=== PATIENT | female | born 1945 | race Caucasian/White ===

== ENCOUNTER 2016-10-21 08:22 | Emergency (ER) | payer MEDICARE, OTHER ==
--- NOTE | 2016-10-21 08:31 | ED Physician Documentation ---
PD HPI BACK INJURY - Stated complaint Stated Complaint: BODY PX - History obtained from History obtained from: Patient - History of Present Illness Location: Right, Lower Type of injury: Twist (turning to put towel back on rack, no fall nor heavy lifting.) Where injury occurred: Other (motel) Timing - onset: How many days ago (3) Timing - duration: Days (3) Timing - details: Abrupt onset, Still present Quality: Pain, Aching Improved by: No: Rest Worsened by: Moving, Palpating Associated symptoms: Numbness (some numbness anterior thigh). No: Fever, Weakness Contributing factors: No: Anticoagulated, Prior back surgery, Work related Similar symptoms before: Has not had sx before Recently seen: Not recently seen Review of Systems Constitutional: denies: Fever, Chills Nose: denies: Rhinorrhea / runny nose, Congestion Throat: denies: Sore throat Cardiac: denies: Chest pain / pressure Respiratory: denies: Cough GI: denies: Abdominal Pain, Nausea, Vomiting, Diarrhea : denies: Dysuria, Frequency, Incontinent, Discharge Skin: denies: Rash, Lesions Musculoskeletal: reports: Back pain Neurologic: reports: Numbness (anterior right thigh). denies: Focal weakness PD PAST MEDICAL HISTORY - Past Medical History Cardiovascular: Hypertension, [place] Respiratory: None Endocrine/Autoimmune: HyPOthyroidism GI: Other : None HEENT: None Psych: None Musculoskeletal: Other Derm: None - Past Surgical History General: Cholecystectomy Ortho: Carpal Tunnel surgery, Other Cardiovascular: Angioplasty HEENT: Other - Present Medications Home Medications: Ambulatory Orders Medication Instructions Recorded Confirmed Levothyroxine Sodium 200 mcg PO DAILY 02/08/16 10/21/16 amLODIPine [Norvasc] 5 mg PO BID 02/08/16 10/21/16 Methocarbamol [Robaxin] 500 mg PO Q6H PRN #25 tablet 10/21/16 Naproxen [Naprosyn] 500 mg PO BID #20 tablet 10/21/16 Omeprazole 20 mg PO DAILY 10/21/16 10/21/16 Tramadol HCl 50 mg PO Q6H PRN #30 tablet 10/21/16 - Allergies Allergies/Adverse Reactions: Allergies Allergy/AdvReac Type Severity Reaction Status Date / Time acetaminophen [From Percocet] Allergy Unknown Verified 10/21/16 08:30 clindamycin Allergy Unknown Verified 10/21/16 08:30 codeine Allergy Hallucinati Verified 02/08/16 14:44 ons oxycodone HCl * Allergy Unknown Verified 10/21/16 08:30 [From Percocet] penicillin G Allergy Rash Verified 02/08/16 14:44 Niylyjg-Ndy-Wqr Reductase Allergy Rash Verified 02/08/16 14:44 Inhibitor venom-wasp [wasp venom] Allergy Anaphylaxis Verified 02/08/16 14:44 PD ED PE NORMAL - Vitals Vital signs reviewed: Yes - General General: Alert and oriented X 3, Well developed/nourished, Other (appears in [place]) - Cardiac Cardiac: RRR, No murmur - Respiratory Respiratory: Clear bilaterally - Abdomen Abdomen: Soft, Non tender - Back Back: No CVA TTP, No spinal TTP, Other (tender focally right upper SI area. Trigger point injection at that spot using Marcaine 2 ml with 1 ml Kenalog 40 mg. This did seem to help after xray. ) - Derm Derm: Normal color, Warm and dry, No rash - Extremities Extremities: No edema, No calf tenderness / cord - Neuro Neuro: Alert and oriented X 3, No motor deficit, Normal speech. No: No sensory deficit (less sensation to touch and pressure just at anterior right thigh. ) Results - Vitals Vitals: Vital Signs - 24 hr 10/21/16 10/21/16 08:26 09:46 Temperature 36.7 C Heart Rate 101 H 84 Respiratory 18 16 Rate Blood Pressure 177/76 H 180/67 H O2 Saturation 98 97 Oxygen O2 Source Room air - Rads (name of study) lumbar spine Radiology: Prelim report reviewed (mild arthritis, no acute findings. ) Departure - Departure Disposition: 01 Home, Self Care Clinical Impression: Low back strain Qualifiers: Encounter type: initial encounter Qualified Code(s): S39.012A - Strain of muscle, fascia and tendon of lower back, initial encounter Sciatica Qualifiers: Laterality: right Qualified Code(s): M54.31 - Sciatica, right side Condition: Stable Record reviewed to determine appropriate education?: Yes Instructions: ED Sciatica, ED Sprain Strain Lumbar Follow-Up: Corky Bojorquez MD [Primary Care Provider] - Prescriptions: Naproxen [Naprosyn] 500 mg PO BID #20 tablet Methocarbamol [Robaxin] 500 mg PO Q6H PRN #25 tablet PRN Reason: Spasms Tramadol HCl 50 mg PO Q6H PRN #30 tablet PRN Reason: Pain Comments: Heat and gentle stretching for the low back. Naproxen or Ibuprofen 2-3 times daily. Robaxin as directed for stiffness/spasms, and add Tylenol and/or Tramadol for pains. Recheck if not improved over the next few days. Discharge Date/Time: 10/21/16 09:56
[2016-10-21] MEDS ORDERED: TRIAMCINOLONE 40 MG/ML VIAL ONE (08:52)
[2016-10-21] MEDS ORDERED: BUPIVACAINE 0.5% PF 30 ML VIAL ONE (08:52)
[2016-10-21] MEDS ORDERED: ACETAMINOPHEN 325 MG TABLET PO ONE (08:53)
[2016-10-21] MEDS ORDERED: METHOCARBAMOL 500 MG TABLET PO ONE (08:53)
[2016-10-21] MEDS ORDERED: traMADol 50 MG TABLET PO ONE (08:53)
[2016-10-21] MEDS: METHOCARBAMOL 500 MG TABLET PO STA (08:55)
[2016-10-21] MEDS: traMADol 50 MG TABLET PO STA (08:55)
[2016-10-21] MEDS: ACETAMINOPHEN 325 MG TABLET PO STA (08:55)
[2016-10-21] MEDS: BUPIVACAINE 0.5% PF 30 ML VIAL SUBQ STA (09:04)
[2016-10-21] MEDS: TRIAMCINOLONE 40 MG/ML VIAL IM STA (09:05)
--- NOTE | 2016-10-21 09:30 | XRAY Preliminary Report ---
Exam: XR Lumbar Spine 2 View IMPRESSION: Mild degenerative changes most marked at L2-3 and straightened lordotic curve. No acute a ppearing findings. [facility] SITE ID: [id number]
--- NOTE | 2016-10-21 09:32 | XRAY Report ---
EXAM: LUMBOSACRAL SPINE RADIOGRAPHY EXAM DATE: 10/21/2016 09:16 AM. CLINICAL HISTORY: Low back pain abruptly. COMPARISONS: None. TECHNIQUE: 2 views. FINDINGS: Alignment: Straightened lordotic curve. No spondylolisthesis or scoliosis. Bones: Five uch-blq-ubugryy lumbar vertebral bodies are present. No fractures or bone lesions. Disks: Mild disk space narrowing and osteophyte formation with anterior bridging osteophyte at L2-3. Early endplate osteophyte formation at the other lumbar levels without significant disk space narrowi ng. Facets: Mild facet hypertrophic changes at L4-L5, moderate at L5-S1. Sacroiliac Joints: Mild degenerative changes bilaterally Soft Tissues: Mild degree of aortic calcification noted inferiorly. IMPRESSION: Mild degenerative changes most marked at L2-3 and straightened lordotic curve. No acute a ppearing findings. [facility] Referring Provider Line: [phone] SITE ID: [id number]
[2016-10-21 09:50] VITALS: BP 180/67
== END 2016-10-21 09:56 | disposition home or self-care (01) ==
LOC: ED 08:22
DX: S39.012A Strain of muscle, fascia and tendon of lower back, initial encounter (principal); X50.0XXA Overexertion from strenuous movement or load, initial encounter; Y92.012 Bathroom of single-family (private) house as the place of occurrence of the external cause; I10 Essential (primary) hypertension; I25.2 Old myocardial infarction; E03.9 Hypothyroidism, unspecified
CPT/HCPCS: 72100; 96372; 99283

== ENCOUNTER 2016-10-29 13:48 | Outpatient (CLI) | payer MEDICARE, OTHER | END 2016-10-29 13:49 | disposition home or self-care (01) | DX: M16.11 Unilateral primary osteoarthritis, right hip (principal) ==

== ENCOUNTER 2019-06-21 13:51 | Emergency (ER) | payer MEDICARE, OTHER ==
--- NOTE | 2019-06-21 14:16 | XRAY Report ---
Reason: chest pain Procedure Date: 06/21/2019 Accession Number: [id number] / [id number] Procedure: XR - Chest 1 View X-Ray CPT Code: 24786 Final Report FULL RESULT: EXAM: CHEST RADIOGRAPHY EXAM DATE: 06/21/2019 02:08 PM. CLINICAL HISTORY: Chest pain. COMPARISON: None. TECHNIQUE: 1 view. FINDINGS: Lungs/Pleura: Lucent upper lungs could reflect COPD. Central bronchial wall thickening is seen which could be consistent with reactive airways or bronchitis. No other focal airspace consolidation. No pneumothorax. Mediastinum: Normal heart size and mediastinum. Atheromatous plaque of the aortic arch. Other: None. IMPRESSION: 1. COPD noted with central bronchial wall thickening that could reflect underlying reactive airways or bronchitis. No focal airspace consolidation. 2. Normal heart size. [facility]
[2019-06-21 14:41] LABS: EOSINOPHILS % (AUTO) 2.6 %; HGB - HEMOGLOBIN 14.4 g/dL (12.0-16.0); LYMPHOCYTES % (AUTO) 40.4 %; MEAN CORPUSCULAR HGB CONC 32.9 g/dL (32.0-36.0); MEAN CORPUSCULAR VOLUME 94.2 fL (81.0-99.0); MEAN PLATELET VOLUME 11.9 fL (7.9-10.8); MONOCYTES % (AUTO) 9.9 %; NEUTROPHILS % (AUTO) 44.7 %; PLT - PLATELET COUNT 243 10^3/uL (130-450); RED BLOOD COUNT 4.65 10^6/uL (4.20-5.40); RED CELL DISTRIBUTION WIDTH 12.8 % (12.0-15.0); WHITE BLOOD COUNT 13.2 x10^3/uL (4.8-10.8)
--- NOTE | 2019-06-21 14:42 | ED Physician Documentation ---
PD HPI CHEST PAIN - Stated complaint Stated Complaint: CHEST PX/NAUSEA - Chief complaint Chief Complaint: Cardiac - History obtained from History obtained from: Patient, Family - History of Present Illness Timing - onset: Today (Just prior to arrival) Timing - onset during: Rest Timing - details: Abrupt onset Pain level max: 10 Pain level now: 6 Quality: Pain Location: Substernal Radiation: Jaw, Neck Improved by: Nothing Associated symptoms: Shortness of air, Diaphoresis, Nausea. No: Vomiting, Feeling faint / dizzy, Palpitations, Cough Similar symptoms before: Work up / diagnostics (This feels like the "angina" that she had in her arm when she had stents placed years ago.) Recently seen: Not recently seen - Additional information Additional information: This is a 74-year-old woman who presents with complaints that she had chest pain right in the center of her chest that began abruptly 45 minutes prior to presentation while she was watching TV. She did eaten a couple hours prior to that. She got really nauseous with it and sweaty and it was radiating up into her throat and neck. She also felt short of breath. Interestingly she had a little episode of pain through the night last night that just went away on its own. She says this feels similar to pain she had in her left arm years ago when she had a stent placed in her coronary arteries. She is not having arm pain today. She denies history of IL but her says that the bottom part of her heart was "shriveled up like a prone". She denies dizziness. She took an aspirin this morning which is her routine medication but has not taken any medicines for the pain. She denies any recent illness of sore throat stuffy nose coughing or fever. No history of DVT and has no peripheral edema. She had carpal tunnel surgery a couple of weeks ago and is recovering from that. She rates the pain now at a 6 out of 10 it was a 10 out of 10 previously. She has had prior left mastectomy and is status post thyroidectomy and cholecystectomy. She had abdominal surgery as a for intestinal twisting. Review of Systems Constitutional: denies: Fever Ears: denies: Ear pain Nose: denies: Congestion Throat: denies: Sore throat Cardiac: reports: Chest pain / pressure. denies: Palpitations, Pedal edema Respiratory: reports: Dyspnea. denies: Cough GI: denies: Abdominal Pain, Nausea, Vomiting, Diarrhea : denies: Dysuria Skin: denies: Rash Musculoskeletal: reports: Neck pain (Pain is radiating up into the neck and throat) Neurologic: denies: Numbness, Near syncope, Syncope Endocrine: reports: Other (She is status post thyroidectomy and takes thyroid replacement) PD PAST MEDICAL HISTORY - Past Medical History Cardiovascular: Hypertension, [place] Respiratory: None Endocrine/Autoimmune: HyPOthyroidism GI: Other : None HEENT: None Psych: None Musculoskeletal: Other Derm: None - Past Surgical History General: Cholecystectomy Ortho: Carpal Tunnel surgery, 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 Cardiovascular: Angioplasty HEENT: Other - Present Medications Home Medications: Ambulatory Orders Medication Instructions Recorded Confirmed Levothyroxine Sodium 200 mcg PO DAILY 02/08/16 10/21/16 amLODIPine [Norvasc] 5 mg PO BID 02/08/16 10/21/16 Omeprazole 20 mg PO DAILY 10/21/16 10/21/16 - Allergies Allergies/Adverse Reactions: Allergies Allergy/AdvReac Type Severity Reaction Status Date / Time acetaminophen [From Percocet] Allergy Unknown Verified 06/21/19 13:57 clindamycin Allergy Unknown Verified 06/21/19 13:57 codeine Allergy Hallucinati Verified 06/21/19 13:57 ons oxycodone HCl * Allergy Unknown Verified 06/21/19 13:57 [From Percocet] penicillin G Allergy Rash Verified 06/21/19 13:57 Dzaqquk-Wqk-Gbv Reductase Allergy Rash Verified 06/21/19 13:57 Inhibitor venom-wasp [wasp venom] Allergy Anaphylaxis Verified 06/21/19 13:57 - Social History Does the pt smoke?: No Smoking Status: Never smoker PD ED PE NORMAL - Vitals Vital signs reviewed: Yes - General General: Alert and oriented X 3, No acute distress, Well developed/nourished - HEENT HEENT: Atraumatic, PERRL, Moist mucous membranes - Neck Neck: No adenopathy - Cardiac Cardiac: RRR, No murmur, Other (Diminished pulse in the left radial however there is a well-healed scar from a prior ganglion cyst removal.) - Respiratory Respiratory: No respiratory distress, Clear bilaterally, Other (s/p L mastectomy. There is a firm, mobile mass on the L chest wall below the clavicle. Non-tender. She says it has been there for years and has no idea what it is. Denies having a port.) - Abdomen Abdomen: Normal bowel sounds, Soft, Non tender, No organomegaly, Other (Well- healed midline abdominal scar and right upper quadrant scar) - Derm Derm: Normal color, Warm and dry, No rash - Extremities Extremities: No deformity, Other (The left hand has a bandage over the volar wrist from her carpal tunnel surgery.) - Neuro Neuro: Alert and oriented X 3, sox analyst 2-12 intact, No motor deficit, No sensory deficit, Normal speech - Psych Psych: Normal mood, Normal affect Results - Vitals Vitals: Vital Signs - 24 hr 06/21/19 06/21/19 06/21/19 13:56 14:28 15:04 Temperature 36.5 C Heart Rate 94 92 90 Respiratory 22 19 19 Rate Blood Pressure 177/88 H 129/65 163/98 H O2 Saturation 100 98 98 06/21/19 06/21/19 06/21/19 15:12 15:14 15:44 Temperature Heart Rate 56 L 89 Respiratory 14 17 Rate Blood Pressure 163/98 H 106/50 L 167/74 H O2 Saturation 97 97 Oxygen O2 Source Room air - EKG (time done) 1400 Rate: Rate (enter#) (91) Rhythm: NSR, Other (PACs) Intervals: Normal NH QRS: Poor R wave progression Ischemia: Non specific changes Compare to prior EKG: Old EKG unavailable 1522 Rate: Rate (enter#) (58) Rhythm: Sinus bradycardia Intervals: Normal NH, Other (PVCx) Ischemia: ST elevation c/w ischemia, ST depression Compare to prior EKG: Changed from prior EKG (Significant change from her EKG taken an hour and a half prior. There is now signs of inferior IL with ST elevation to 3 and aVF and reciprocal changes with ST depression and T wave inversion V2 and V3.) 1539 Rate: Rate (enter#) (85) Rhythm: NSR QRS: Poor R wave progression Ischemia: ST depression (V2) Compare to prior EKG: Changed from prior EKG (This 3rd EKG shows resolution of the ST elevation that was present while she was bradycardic.) - Labs Labs: Laboratory Tests 06/21/19 06/21/19 06/21/19 14:35 14:35 14:40 WBC 13.2 H RBC 4.65 Hgb 14.4 Hct 43.8 MCV 94.2 MCH 31.0 MCHC 32.9 RDW 12.8 Plt Count 243 MPV 11.9 H Neut # (Auto) Not Reportable Lymph # (Auto) Not Reportable [place] # (Auto) Not Reportable Eos # (Auto) Not Reportable Baso # (Auto) Not Reportable Absolute Nucleated RBC Not Reportable Total Counted 100 Band Neuts % (Manual) 2 Abnorm Lymph % (Manual) 0 Nucleated RBC % Not Reportable Neutrophils # (Manual) 6.3 Lymphocytes # (Manual) 6.2 H Monocytes # (Manual) 0.7 Eosinophils # (Manual) 0.0 Basophils # (Manual) 0.0 Differential Comment MANUAL DIFFERENTIAL Platelet Estimate NORMAL (130-450,000) Platelet Morphology NORMAL APPEARANCE RBC Morph Micro Appear NORMAL APPEARANCE Sodium 137 Potassium 3.0 L Chloride 102 Carbon Dioxide 22 Anion Gap 13.0 BUN 19 Creatinine 0.8 Estimated GFR (MDRD) 70 L Glucose 187 H Calcium 9.2 Total Bilirubin 0.6 AST 46 H ALT 39 Alkaline Phosphatase 115 Troponin I High Sens 11.8 Total Protein 8.2 Albumin 4.5 Globulin 3.7 Albumin/Globulin Ratio 1.2 Lipase 52 H PD MEDICAL DECISION MAKING - ED course Complexity details: reviewed results, re-evaluated patient, d/w patient, d/w family ED course: The patient was given a sublingual nitroglycerin after which her heart rate dropped into the 50s and her blood pressure was 107 systolic. She said she just did not feel good at all. A repeat EKG has been ordered and a saline bolus. Repeat EKG was consistent with ST elevation IL inferior. Heparin was ordered as well as a second IV. Contacted the emergency department at [facility] and spoke with Dr. Ko who agreed to accept the patient in transfer for acute IL. As I went in the room to discuss with the patient the plan she was feeling better and it looks like the ST elevation may have resolved on her monitor so I ordered a third EKG. Troponin is still pending. Her potassium was low at 3.0 I have ordered 20 mEq of potassium IV. The plan was discussed with her and her . Departure - Departure Disposition: 02 Transfer Acute Care Hosp Clinical Impression: Myocardial infarction Qualifiers: Myocardial infarction type: ST elevation myocardial infarction Involved coronary artery: unspecified coronary artery Qualified Code(s): I21.3 - ST elevation (STEMI) myocardial infarction of unspecified site Condition: Stable Discharge Date/Time: 06/21/19 15:55
[2019-06-21 14:46] LABS: ABNORMAL LYMPHS % (MANUAL) 0 %
[2019-06-21] MEDS ORDERED: ONDANSETRON 4 MG/2 ML VIAL IM STA (14:53)
[2019-06-21] MEDS ORDERED: NITROGLYCERIN SL 0.4 MG TABLET SL STA (14:54)
[2019-06-21] MEDS ORDERED: ASPIRIN CHEW 81 MG TABLET PO STA (14:54)
[2019-06-21 14:59] LABS: ALBUMIN 4.5 g/dL (3.2-5.5); ALBUMIN/GLOBULIN RATIO 1.2 (1.0-2.2); BILIRUBIN,TOTAL 0.6 mg/dL (0.2-1.0); CALCIUM 9.2 mg/dL (8.5-10.3); CREATININE 0.8 mg/dL (0.4-1.0); TOTAL PROTEIN 8.2 g/dL (6.7-8.2)
[2019-06-21 15:04] LABS: BAND NEUTROPHILS % (MANUAL) 2 %; DIFFERENTIAL COMMENT MANUAL DIFFERENTIAL; LYMPHOCYTES # (MANUAL) 6.2 10^3/uL (1.5-3.5); LYMPHOCYTES % (MANUAL) 47 %; MONOCYTES # (MANUAL) 0.7 10^3/uL (0.0-1.0); PLATELET ESTIMATE, MANUAL NORMAL (130-450,000) (NORMAL); PLATELET MORPHOLOGY NORMAL APPEARANCE (NORMAL); RBC MORPHOLOGY (MULTIPLE) NORMAL APPEARANCE (NORMAL)
[2019-06-21] MEDS ORDERED: SODIUM CHLORIDE 0.9% 500 ML IV ONE (15:14)
[2019-06-21] MEDS ORDERED: SODIUM CHLORIDE 0.9% 1,000 ML IV ONE (15:15)
[2019-06-21] MEDS ORDERED: POTASSIUM CHLOR 20 MEQ/100 ML 20 MEQ/100 ML BAG IV ONE (15:16)
[2019-06-21] MEDS ORDERED: HEPARIN 5,000 UNIT/ML VIAL ONE (15:28)
[2019-06-21] MEDS ORDERED: HEPARIN 25000UNITS/500ML (D5W) 25,000 UNIT/500 ML BAG IV ONE (15:29)
[2019-06-21] MEDS ORDERED: HEPARIN 25000UNITS/500ML (D5W) 25,000 UNIT/500 ML BAG IV STA (15:38)
[2019-06-21 15:45] VITALS: BP 167/74
[2019-06-21] MEDS ORDERED: HEPARIN 5,000 UNIT/ML VIAL IVP STA (15:45)
[2019-06-21] MEDS ORDERED: POTASSIUM CHLOR 10 MEQ/100 ML 10 MEQ/100 ML BAG IV SCH (16:00)
== END 2019-06-21 15:55 | disposition short-term general hospital (02) ==
LOC: ED 13:51
DX: I21.19 ST elevation (STEMI) myocardial infarction involving other coronary artery of inferior wall (principal); I49.1 Atrial premature depolarization; E87.6 Hypokalemia; I10 Essential (primary) hypertension; I25.2 Old myocardial infarction; Z98.61 Coronary angioplasty status; R22.2 Localized swelling, mass and lump, trunk
CPT/HCPCS: 36415; 71045; 80053; 83690; 84484; 85025; 93005; 96372; 96374; 96375; 99285; A9270

== ENCOUNTER 2019-06-21 15:54 | Outpatient (CLI) | payer MEDICARE, OTHER | END 2019-06-21 15:55 | disposition short-term general hospital (02) | LOC: EMS 15:54 | PROVIDERS: ATTEND Surgery | DX: I21.3 ST elevation (STEMI) myocardial infarction of unspecified site (principal); R61 Generalized hyperhidrosis; R06.02 Shortness of breath | CPT/HCPCS: A0425; A0426 ==

== ENCOUNTER 2019-09-11 08:12 | Outpatient (CLI) | payer MEDICARE, OTHER ==
--- NOTE | 2019-09-11 15:55 | XRAY Report ---
Reason: PAIN IN LEFT SHOULDER Procedure Date: 09/11/2019 Accession Number: [id number] / [id number] Procedure: XR - Shoulder 3 View LT CPT Code: Final Report FULL RESULT: EXAM: LEFT SHOULDER RADIOGRAPHY EXAM DATE: 09/11/2019 08:22 AM. CLINICAL HISTORY: PAIN IN LEFT SHOULDER. COMPARISON: None. TECHNIQUE: 3 views. FINDINGS: Bones: Normal. No fracture or bone lesion. Joints: AC joint hypertrophy. Glenohumeral joint osteophyte and joint space narrowing. Soft tissues: The visualized hemithorax is unremarkable. No soft tissue swelling. IMPRESSION: DJD. [facility]
== END 2019-09-11 08:13 | disposition home or self-care (01) ==
LOC: DI 08:12
PROVIDERS: ATTEND Family Medicine
DX: M19.012 Primary osteoarthritis, left shoulder (principal)

== ENCOUNTER 2019-10-03 19:04 | Emergency (ER) | payer MEDICARE, OTHER ==
--- NOTE | 2019-10-03 19:15 | ED Physician Documentation ---
PD HPI CHEST PAIN - Stated complaint Stated Complaint: CP - Chief complaint Chief Complaint: Cardiac - History obtained from History obtained from: Patient (Patient is a 74-year-old femaleWho presents to the emergency room tonight with a chief complaint of chest pain. She does have a history of coronary artery disease with 1 stent placement from a previous [place] approximately 3 months prior she has a prescription for Brilinta but does not ta ke it she has been feeling worse over the last 2 to 3 days and tonight had worsening epigastric discomfort with nausea and diaphoresis.She is had a previous cholecystectomy.She took 2 full dose aspirins prior to arrival.) Review of Systems Constitutional: reports: Reviewed and negative Eyes: reports: Reviewed and negative Ears: reports: Reviewed and negative Nose: reports: Reviewed and negative Throat: reports: Reviewed and negative Cardiac: reports: Chest pain / pressure Respiratory: reports: Reviewed and negative GI: reports: Reviewed and negative : reports: Reviewed and negative Skin: reports: Reviewed and negative Musculoskeletal: reports: Reviewed and negative Neurologic: reports: Reviewed and negative Psychiatric: reports: Reviewed and negative Endocrine: reports: Reviewed and negative Immunocompromised: reports: Reviewed and negative PD PAST MEDICAL HISTORY - Past Medical History Cardiovascular: Hypertension, [place] Respiratory: None Endocrine/Autoimmune: HyPOthyroidism GI: Other : None HEENT: None Psych: None Musculoskeletal: Other Derm: None - Past Surgical History General: Cholecystectomy Ortho: Carpal Tunnel surgery, 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 Cardiovascular: Angioplasty HEENT: Other - Present Medications Home Medications: Ambulatory Orders Medication Instructions Recorded Confirmed Levothyroxine Sodium 200 mcg PO DAILY 02/08/16 10/03/19 amLODIPine [Norvasc] 5 mg PO BID 02/08/16 10/03/19 Omeprazole 20 mg PO DAILY 10/21/16 10/03/19 Carvedilol [Coreg] 25 mg PO BID 10/03/19 10/03/19 - Allergies Allergies/Adverse Reactions: Allergies Allergy/AdvReac Type Severity Reaction Status Date / Time acetaminophen [From Percocet] Allergy Unknown Verified 10/03/19 19:07 clindamycin Allergy Unknown Verified 10/03/19 19:07 codeine Allergy Hallucinati Verified 10/03/19 19:07 ons oxycodone HCl * Allergy Unknown Verified 10/03/19 19:07 [From Percocet] penicillin G Allergy Rash Verified 03/14/20 19:07 Nrtdqxt-Bmi-Jzs Reductase Allergy Rash Verified 10/03/19 19:07 Inhibitor venom-wasp [wasp venom] Allergy Anaphylaxis Verified 10/03/19 19:07 - Social History Does the pt smoke?: No Smoking Status: Never smoker PD ED PE NORMAL - Vitals Vital signs reviewed: Yes - General General: Alert and oriented X 3, No acute distress, Well developed/nourished - HEENT HEENT: Atraumatic, PERRL, Moist mucous membranes, Pharynx benign - Neck Neck: Supple, no meningeal sign, No JVD - Cardiac Cardiac: RRR, No murmur, Strong equal pulses - Respiratory Respiratory: No respiratory distress, Clear bilaterally - Abdomen Abdomen: Normal bowel sounds, Soft, Non tender, Non distended, No organomegaly - Derm Derm: Normal color, Warm and dry, No rash - Extremities Extremities: No deformity - Neuro Neuro: Alert and oriented X 3, seismograph supervisor 2-12 intact, No motor deficit, No sensory deficit, Normal speech - Psych Psych: Normal mood, Normal affect Results - Vitals Vitals: Vital Signs - 24 hr 10/03/19 10/03/19 10/03/19 19:07 19:20 19:31 Temperature 36.5 C Heart Rate 70 95 Respiratory 71 H 17 Rate Blood Pressure 157/77 H Blood Pressure 176/89 H [Right] O2 Saturation 100 100 10/03/19 10/03/19 10/03/19 19:51 20:11 20:33 Temperature Heart Rate 66 71 69 Respiratory 14 17 18 Rate Blood Pressure 179/82 H 158/92 H 186/94 H Blood Pressure [Right] O2 Saturation 98 95 97 10/03/19 10/03/19 10/03/19 21:05 21:09 21:34 Temperature 36.7 C Heart Rate 71 71 70 Respiratory 18 18 13 Rate Blood Pressure 142/111 H 142/111 H 171/83 H Blood Pressure [Right] O2 Saturation 98 97 96 10/03/19 10/03/19 10/03/19 22:18 22:37 23:00 Temperature Heart Rate 73 74 72 Respiratory 19 17 17 Rate Blood Pressure 173/81 H 174/86 H 174/86 H Blood Pressure [Right] O2 Saturation 96 97 96 10/03/19 10/03/19 23:16 23:46 Temperature 36.5 C Heart Rate 72 75 Respiratory 19 19 Rate Blood Pressure 182/92 H 158/74 H Blood Pressure [Right] O2 Saturation 96 97 Oxygen O2 Source Room air - EKG (time done) 19:12 Rate: Other (No STEMI) - Labs Labs: Laboratory Tests 10/03/19 10/03/19 10/03/19 19:50 19:50 19:50 WBC 10.2 RBC 4.55 Hgb 14.3 Hct 43.5 MCV 95.6 MCH 31.4 H MCHC 32.9 RDW 13.2 Plt Count 259 MPV 11.2 H Neut # (Auto) 5.4 Lymph # (Auto) 3.2 [place] # (Auto) 0.9 Eos # (Auto) 0.4 Baso # (Auto) 0.2 H Absolute Nucleated RBC 0.00 Nucleated RBC % 0.0 PT INR APTT Sodium 138 Potassium 3.3 L Chloride 106 Carbon Dioxide 22 Anion Gap 10.0 BUN 14 Creatinine 0.8 Estimated GFR (MDRD) 70 L Glucose 200 H Calcium 8.9 Total Bilirubin 0.3 Direct Bilirubin < 0.1 L AST 31 ALT 23 Alkaline Phosphatase 91 Total Creatine Kinase 45 Troponin I High Sens 85.6 H* B-Natriuretic Peptide Total Protein 7.8 Albumin 4.2 Globulin 3.6 Albumin/Globulin Ratio 1.2 Lipase 41 Urine Color Urine Clarity Urine pH Ur Specific [place] Urine Protein Urine Glucose (UA) Urine Ketones Urine Occult Blood Urine Nitrite Urine Bilirubin Urine Urobilinogen Ur Leukocyte Esterase Urine RBC Urine WBC Ur Squamous Epith Cells Urine Bacteria Ur Microscopic Review Urine Culture Comments 10/03/19 10/03/19 10/03/19 19:50 20:00 20:05 WBC RBC Hgb Hct MCV MCH MCHC RDW Plt Count MPV Neut # (Auto) Lymph # (Auto) [place] # (Auto) Eos # (Auto) Baso # (Auto) Absolute Nucleated RBC Nucleated RBC % PT 13.0 H INR 1.2 APTT 35.4 H Sodium Potassium Chloride Carbon Dioxide Anion Gap BUN Creatinine Estimated GFR (MDRD) Glucose Calcium Total Bilirubin Direct Bilirubin AST ALT Alkaline Phosphatase Total Creatine Kinase Troponin I High Sens B-Natriuretic Peptide 143 H Total Protein Albumin Globulin Albumin/Globulin Ratio Lipase Urine Color YELLOW Urine Clarity CLEAR Urine pH 7.0 Ur Specific [place] 1.015 Urine Protein NEGATIVE Urine Glucose (UA) 100 H Urine Ketones NEGATIVE Urine Occult Blood NEGATIVE Urine Nitrite NEGATIVE Urine Bilirubin NEGATIVE Urine Urobilinogen 0.2 (NORMAL) Ur Leukocyte Esterase TRACE H Urine RBC None Seen Urine WBC 0-3 Ur Squamous Epith Cells FEW Squamous Urine Bacteria None Seen Ur Microscopic Review INDICATED Urine Culture Comments INDICATED PD MEDICAL DECISION MAKING - ED course Complexity details: considered differential (ACS, pneumonia, PE, pancreatitis, Angina) - Consults Consults: Consulted (name) (dr. galicia, cardiology, start on heparin, lopressor, plavix and transfer patient to [facility] dr. galicia accepts, also spoke with hospitalist dr. ashraf who will accept this patient as well.) - Critical Care Time(min): 74 Time Includes: Direct patient care, Review records, Reassess patient, Document care, Coordinate care, Medical consult, Family consult for tx dec, See progress note Data interpretation: Labs, Pulse ox, CXR, Prior EKG Procedures included in critical care time: Peripheral IV Procedures excluded from critical care time: EKG Departure - Departure Disposition: 02 Transfer Acute Care Hosp Clinical Impression: NSTEMI (non-ST elevated myocardial infarction) Chest pain Qualifiers: Chest pain type: unspecified Qualified Code(s): R07.9 - Chest pain, unspecified Condition: Stable Discharge Date/Time: 10/03/19 23:52
[2019-10-03] MEDS ORDERED: SODIUM CHLORIDE 0.9% 1,000 ML IV ONE (19:30)
[2019-10-03] MEDS ORDERED: fentaNYL 100 MCG/2 ML VIAL IVP STA (19:30)
[2019-10-03] MEDS ORDERED: ONDANSETRON 4 MG/2 ML VIAL IVP STA (19:30)
[2019-10-03 20:01] LABS: BASOPHILS # (AUTO) 0.2 10^3/uL (0.0-0.1); EOSINOPHILS # (AUTO) 0.4 10^3/uL (0.0-0.7); EOSINOPHILS % (AUTO) 3.7 %; HGB - HEMOGLOBIN 14.3 g/dL (12.0-16.0); LYMPHOCYTES # (AUTO) 3.2 10^3/uL (1.5-3.5); LYMPHOCYTES % (AUTO) 31.9 %; MEAN CORPUSCULAR HEMOGLOBIN 31.4 pg (27.0-31.0); MEAN CORPUSCULAR HGB CONC 32.9 g/dL (32.0-36.0); MEAN CORPUSCULAR VOLUME 95.6 fL (81.0-99.0); MEAN PLATELET VOLUME 11.2 fL (7.9-10.8); MONOCYTES # (AUTO) 0.9 10^3/uL (0.0-1.0); MONOCYTES % (AUTO) 9.1 %; NEUTROPHILS # (AUTO) 5.4 10^3/uL (1.5-6.6); NEUTROPHILS % (AUTO) 52.9 %; PLT - PLATELET COUNT 259 10^3/uL (130-450); RED BLOOD COUNT 4.55 10^6/uL (4.20-5.40); RED CELL DISTRIBUTION WIDTH 13.2 % (12.0-15.0); WHITE BLOOD COUNT 10.2 x10^3/uL (4.8-10.8)
--- NOTE | 2019-10-03 20:13 | XRAY Report ---
Reason: Chest pain Procedure Date: 10/03/2019 Accession Number: [id number] / [id number] Procedure: XR - Chest 1 View X-Ray CPT Code: 12419 Final Report FULL RESULT: EXAM: CHEST RADIOGRAPHY EXAM DATE: 10/03/2019 08:00 PM. CLINICAL HISTORY: Chest pain. COMPARISON: CHEST 1 VIEW 06/21/2019 2:02 PM. TECHNIQUE: 1 view. FINDINGS: Lungs/Pleura: No focal opacities evident. No pleural effusion. No pneumothorax. Mediastinum: Within exam limitations, the cardiomediastinal contour is normal. Other: None. IMPRESSION: Normal single view chest. [facility]
[2019-10-03 20:24] LABS: BILIRUBIN,URINE NEGATIVE (NEGATIVE); GLUCOSE, URINE (UA) 100 mg/dL (NEGATIVE); KETONES,URINE (UA) NEGATIVE (NEGATIVE); LEUKOCYTE ESTERASE, URINE TRACE (NEGATIVE); NITRITE,URINE NEGATIVE (NEGATIVE); OCCULT BLOOD,URINE NEGATIVE (NEGATIVE); PROTEIN,URINE NEGATIVE (NEGATIVE); UROBILINOGEN,URINE 0.2 (NORMAL) E.U./dL (NORMAL)
[2019-10-03 20:24] LABS: ALBUMIN 4.2 g/dL (3.2-5.5); ALBUMIN/GLOBULIN RATIO 1.2 (1.0-2.2); ALKALINE PHOSPHATASE 91 IU/L (42-121); ALT ALANINE AMINOTRANSFERASE 23 IU/L (10-60); AST ASPARTATE AMINOTRANSFERASE 31 IU/L (10-42); BILIRUBIN,TOTAL 0.3 mg/dL (0.2-1.0); BUN - BLOOD UREA NITROGEN 14 mg/dL (6-20); CALCIUM 8.9 mg/dL (8.5-10.3); CARBON DIOXIDE - CO2 22 mmol/L (21-32); CHLORIDE 106 mmol/L (101-111); CK- CREATINE KINASE 45 IU/L (22-269); CREATININE 0.8 mg/dL (0.4-1.0); GFR - MDRD 70 (>89); GLUCOSE 200 mg/dL (70-100); LIPASE 41 U/L (22-51); SODIUM 138 mmol/L (135-145); TOTAL PROTEIN 7.8 g/dL (6.7-8.2)
[2019-10-03 20:29] LABS: CLARITY,URINE CLEAR (CLEAR)
[2019-10-03 20:31] LABS: BILIRUBIN,DIRECT < 0.1 mg/dL (0.1-0.5)
[2019-10-03 20:34] LABS: INR 1.2 (0.8-1.2)
[2019-10-03 20:41] LABS: PARTIAL THROMBOPLASTIN TIME 35.4 secs (24.9-33.3)
[2019-10-03 20:44] LABS: BACTERIA,URINE None Seen /HPF (None Seen); RBC,URINE None Seen /HPF (0-5); SQUAMOUS EPITHELIAL CELL,UR FEW Squamous (<= Few)
[2019-10-03] MEDS ORDERED: CLOPIDOGREL 75 MG TABLET PO STA (20:49)
[2019-10-03] MEDS ORDERED: HEPARIN 5,000 UNIT/ML VIAL IVP STA (20:50)
[2019-10-03] MEDS ORDERED: HEPARIN 25000UNITS/500ML (D5W) 25,000 UNIT/500 ML BAG IV STA (20:50)
[2019-10-03] MEDS ORDERED: METOPROLOL 5 MG/5 ML VIAL IVP STA (20:50)
[2019-10-03 23:48] VITALS: BP 158/74
== END 2019-10-03 23:52 | disposition short-term general hospital (02) ==
LOC: ED 19:04
DX: I21.4 Non-ST elevation (NSTEMI) myocardial infarction (principal); I10 Essential (primary) hypertension; Z91.14 Patient's other noncompliance with medication regimen
CPT/HCPCS: 36415; 71045; 80053; 81001; 82248; 82550; 83690; 83880; 84484; 85025; 85610; 85730; 87086; 93005; 96361; 96374; 96375; 99285; 99291; A9270; 80048; 80076; 81003

== ENCOUNTER 2019-10-03 23:56 | Outpatient (CLI) | payer MEDICARE, OTHER | END 2019-10-03 23:59 | disposition short-term general hospital (02) | LOC: EMS 23:56 | PROVIDERS: ATTEND Surgery | DX: I21.4 Non-ST elevation (NSTEMI) myocardial infarction (principal) | CPT/HCPCS: A0425; A0426 ==

== ENCOUNTER 2021-12-27 21:34 | Outpatient (CLI) | payer MEDICARE, OTHER | END 2021-12-27 21:35 | disposition left against medical advice (07) | LOC: EMS 21:34 | DX: R42 Dizziness and giddiness (principal); M25.559 Pain in unspecified hip; R11.0 Nausea; W18.39XA Other fall on same level, initial encounter; Y92.002 Bathroom of unspecified non-institutional (private) residence as the place of occurrence of the external cause; Z96.649 Presence of unspecified artificial hip joint ==

== ENCOUNTER 2023-05-09 08:26 | Emergency (ER) | payer MEDICARE, OTHER ==
--- NOTE | 2023-05-09 08:33 | ED Physician Documentation ---
PD HPI CHEST PAIN - Stated complaint Stated Complaint: CHEST PRESSURE,SOA - History obtained from History obtained from: Patient - History of Present Illness Timing - onset: How many days ago (has had some chest pains intermittently for 3 days, not exertional per se. Onset last night and has been persistent. Feels similar to prior MIs in 2019 and 2018.) Timing - onset during: Rest, Light activity Timing - duration: Hours Timing - details: Abrupt onset, Still present Quality: Pressure, Tightness, Aching Location: Substernal, Left chest Radiation: Back. No: Neck, Abdominal Associated symptoms: Shortness of air, Nausea, Feeling faint / dizzy. No: Vomiting, Palpitations, Cough Similar symptoms before: Diagnosis (similar to prior MIs.) Recently seen: Not recently seen Review of Systems Constitutional: denies: Fever Nose: denies: Rhinorrhea / runny nose, Congestion Throat: denies: Sore throat Respiratory: denies: Cough GI: reports: Nausea. denies: Abdominal Pain, Vomiting, Diarrhea Musculoskeletal: denies: Extremity swelling Neurologic: denies: Near syncope PD PAST MEDICAL HISTORY - Past Medical History Cardiovascular: Hypertension, WI Respiratory: None Endocrine/Autoimmune: HyPOthyroidism GI: Other : None HEENT: None Psych: None Musculoskeletal: Other Derm: None - Past Surgical History General: Cholecystectomy Ortho: Carpal Tunnel surgery, Other /GEOLOGIST: Mastectomy Cardiovascular: Angioplasty HEENT: Other - Present Medications Home Medications: Ambulatory Orders Medication Instructions Recorded Confirmed Levothyroxine Sodium 200 mcg PO DAILY 02/08/16 08/24/22 amLODIPine [Norvasc] 5 mg PO BID 02/08/16 08/24/22 Omeprazole 20 mg PO DAILY 10/21/16 08/24/22 Lisinopril [Zestril] 20 mg PO DAILY 03/09/22 08/24/22 Letrozole 2.5 mg PO DAILY 03/23/22 08/24/22 Palbociclib [Ibrance] 125 mg PO DAILY 04/11/22 08/24/22 - Allergies Allergies/Adverse Reactions: Allergies Allergy/AdvReac Type Severity Reaction Status Date / Time acetaminophen [From Percocet] Allergy Unknown Verified 05/09/23 08:43 clindamycin Allergy Unknown Verified 05/09/23 08:43 codeine Allergy Hallucinati Verified 05/09/23 08:43 ons oxycodone HCl * Allergy Unknown Verified 05/09/23 08:43 [From Percocet] penicillin G Allergy Rash Verified 05/09/23 08:43 Lobmjxt-IMX-QlS Reductase Allergy Rash Verified 05/09/23 08:43 Inhibitor [Kyinidv-Ayb-Ixj Reductase Inhibitor] venom-wasp [wasp venom] Allergy Anaphylaxis Verified 05/09/23 08:43 - Social History Does the pt smoke?: No Smoking Status: Unknown if ever smoked Does the pt drink ETOH?: No Does the pt have substance abuse?: No - Immunizations Immunizations are current?: Yes - POLST Patient has POLST: No PD ED PE NORMAL - Vitals Vital signs reviewed: Yes - General General: Alert and oriented X 3, Well developed/nourished, Other (appears uncomfortable, holding chest. ) - Neck Neck: Supple, no meningeal sign, No adenopathy - Cardiac Cardiac: RRR, No murmur - Respiratory Respiratory: No respiratory distress, Clear bilaterally, Other (no chestwall tenderness. ) - Abdomen Abdomen: Normal bowel sounds, Soft, Non distended, Other (some tender epigastric area. ) - Derm Derm: Normal color, Warm and dry - Extremities Extremities: No tenderness to palpate, No edema, No calf tenderness / cord - Neuro Neuro: Alert and oriented X 3, No motor deficit, Normal speech Results - Vitals Vitals: Vital Signs - 24 hr 05/09/23 05/09/23 08:39 09:13 Temperature 36.5 C Heart Rate 89 91 Respiratory 15 16 Rate Blood Pressure 181/91 H 165/69 H O2 Saturation 100 95 Oxygen O2 Source Room air - EKG (time done) 08:33 EKG releavant findings:: EKG personally interpreted by author of this note. Relevant findings are: Rate: Rate (enter#) (99) Rhythm: NSR [place]: Normal Intervals: Normal IN QRS: Normal Ischemia: ST elevation c/w ischemia, ST depression (markedly in anterolateral leads, likely c/w posterior WI. ) - Labs Labs: Laboratory Tests 05/09/23 05/09/23 05/09/23 08:41 08:41 08:41 WBC 9.1 RBC 4.18 L Hgb 11.4 L Hct 35.7 L MCV 85.4 MCH 27.3 MCHC 31.9 L RDW 15.4 H Plt Count 371 MPV 11.0 H Neut # (Auto) 4.7 Lymph # (Auto) 2.7 [place] # (Auto) 0.8 Eos # (Auto) 0.7 Baso # (Auto) 0.2 H Absolute Nucleated RBC 0.00 Nucleated RBC % 0.0 Sodium 140 Potassium 3.6 Chloride 106 Carbon Dioxide 24 Anion Gap 10.0 BUN 18 Creatinine 0.8 Estimated GFR (MDRD) 69 L Glucose 167 H Calcium 9.9 Magnesium 1.9 Total Bilirubin 0.4 AST 22 ALT 17 Alkaline Phosphatase 126 H Troponin I High Sens 44.0 H* B-Natriuretic Peptide 80 Total Protein 7.8 Albumin 4.7 Globulin 3.1 Albumin/Globulin Ratio 1.5 Lipase 44 - Rads (name of study) chest xray Relevant Findings:: Prelim report reviewed, EMP independent interpretation of test (no acute infiltrates, fluid congestion nor effusion/PTX. ) PD Medical Decision Making - ED course Complexity details: reviewed results, re-evaluated patient, considered differential (intermittent pains for few days and now consistent since last night. ECG showing some apparent inschemic changes anteriorly. ), d/w patient ED course: The patient is having chest pain consistent with prior MIs. She is nauseous and dyspneic. Her EKG shows marked ST depressions in the anterolateral leads with ST depression Diffusely otherwise. This looks most likely consistent with a posterior WI. She had an improvement in chest pain shortly after and a repeat EKG showed less ischemic changes. She had a return of chest pain and on monitor the same ST depressions were visible. This looks to be acute at ST elevation WI or significant unstable angina. I sent the EKGs over to [facility] and talked with the emergency physician Dr. Ko who accepted transfer of the patient and will notify the roof bolter operator for them to determine if urgent intervention is needed. He did accept transfer ER to ER. The patient states adamantly that she does not want a helicopter but just by ground. We will do a stat ground transfer. Initial treatments of aspirin, Plavix, heparin, nitro are initiated. She had had a blood pressure lowering event in 2019 with fentanyl administration. We are giving IV fluids initially first and then if need be we can give some fentanyl. This will be chosen over morphine because of her allergy to codeine. The patient agrees to transfer. Delay time in the ER due to initial EKG showing ischemia but not clearly ST elev ation per se required collaboration with physician at [facility] to accept transfer. Also then switched from helicopter to ground EMS and the local ambulance was out on a run so took this few minutes for them to come. The patient was having oscillating pain. This seemed to decrease with initial nitroglycerin. She had initially declined it but then did except when the pain increased again. Potential would be to give a low-dose of fentanyl or morphine though it more likely go with fentanyl given her codeine allergy. EMS is now here ready to take the patient by ground ALS. Her monitor is showing the consistent ST depressions seen initially. Presume either posterior WI or severe unstable angina both of which would need urgent evaluation by cardiology. - Critical Care Time(min): 50 Time Includes: Direct patient care, Reassess patient, Document care, Medical consult Data interpretation: CXR Procedures excluded from critical care time: EKG Departure - Departure Disposition: 02 Transfer Acute Care Hosp Clinical Impression: ST elevation myocardial infarction (STEMI) of true posterior wall Condition: Stable Record reviewed to determine appropriate education?: Yes
[2023-05-09] MEDS ORDERED: ASPIRIN CHEW 81 MG TABLET PO STA (08:54)
[2023-05-09] MEDS ORDERED: SODIUM CHLORIDE 0.9% 500 ML IV STA (08:55)
[2023-05-09] MEDS ORDERED: CLOPIDOGREL 75 MG TABLET PO STA (08:56)
[2023-05-09] MEDS ORDERED: fentaNYL 100 MCG/2 ML VIAL IVP STA (09:01)
[2023-05-09] MEDS: NITROGLYCERIN SL 0.4 MG TABLET SL STA ×2 (09:10→09:20)
[2023-05-09 09:11] LABS: BASOPHILS # (AUTO) 0.2 10^3/uL (0.0-0.1); EOSINOPHILS # (AUTO) 0.7 10^3/uL (0.0-0.7); HCT - HEMATOCRIT 35.7 % (37.0-47.0); HGB - HEMOGLOBIN 11.4 g/dL (12.0-16.0); LYMPHOCYTES # (AUTO) 2.7 10^3/uL (1.5-3.5); LYMPHOCYTES % (AUTO) 29.2 %; MEAN CORPUSCULAR HEMOGLOBIN 27.3 pg (27.0-31.0); MEAN CORPUSCULAR HGB CONC 31.9 g/dL (32.0-36.0); MEAN CORPUSCULAR VOLUME 85.4 fL (81.0-99.0); MONOCYTES # (AUTO) 0.8 10^3/uL (0.0-1.0); MONOCYTES % (AUTO) 8.5 %; NEUTROPHILS # (AUTO) 4.7 10^3/uL (1.5-6.6); NEUTROPHILS % (AUTO) 52.1 %; PLT - PLATELET COUNT 371 10^3/uL (130-450); RED BLOOD COUNT 4.18 10^6/uL (4.20-5.40); RED CELL DISTRIBUTION WIDTH 15.4 % (12.0-15.0); WHITE BLOOD COUNT 9.1 x10^3/uL (4.8-10.8)
--- NOTE | 2023-05-09 09:11 | XRAY Report ---
PROCEDURE: Chest 1 View X-Ray INDICATIONS: Chest Pain TECHNIQUE: One view of the chest was acquired. COMPARISON: 08/17/2022. FINDINGS: Surgical changes and devices: None. Lungs and pleura: No pleural effusions or pneumothorax. Lungs are clear. Mediastinum: Mediastinal contours appear normal. Heart size is normal. Bones and chest wall: No suspicious bony lesions. Overlying soft tissues appear unremarkable. IMPRESSION: No acute cardiopulmonary process. Reviewed by: Be White MD on 05/09/2023 9:10 AM PDT Approved by: Be White MD on 05/09/2023 9:10 AM PDT Station ID: [id number]
[2023-05-09 09:22] LABS: ALBUMIN 4.7 g/dL (3.2-5.5); ALBUMIN/GLOBULIN RATIO 1.5 (1.0-2.2); BILIRUBIN,TOTAL 0.4 mg/dL (0.2-1.0); CALCIUM 9.9 mg/dL (8.5-10.3); CREATININE 0.8 mg/dL (0.6-1.3); MAGNESIUM 1.9 mg/dL (1.7-2.3); POTASSIUM 3.6 mmol/L (3.5-4.5); TOTAL PROTEIN 7.8 g/dL (6.4-8.9)
[2023-05-09] MEDS ORDERED: NITROGLYCERIN SL 0.4 MG TABLET SL STA (09:41)
[2023-05-09 09:59] VITALS: BP 172/86; O2SAT 100
[2023-05-09] MEDS ORDERED: HEPARIN 25000UNITS/500ML (D5W) 25,000 UNIT/500 ML BAG IV SCH (10:00)
== END 2023-05-09 09:59 | disposition short-term general hospital (02) ==
LOC: ED 08:26
DX: I21.29 ST elevation (STEMI) myocardial infarction involving other sites (principal); I25.2 Old myocardial infarction; I10 Essential (primary) hypertension; E03.9 Hypothyroidism, unspecified; Z79.899 Other long term (current) drug therapy
CPT/HCPCS: 36415; 71045; 80053; 83690; 83735; 83880; 84484; 85025; 93005; 96361; 96374; 99285; 99291; A9270

== ENCOUNTER 2023-05-09 09:55 | Outpatient (CLI) | payer MEDICARE, OTHER | END 2023-05-09 09:56 | disposition short-term general hospital (02) | LOC: EMS 09:55 | PROVIDERS: ATTEND Emergency Medicine | DX: I21.3 ST elevation (STEMI) myocardial infarction of unspecified site (principal) | CPT/HCPCS: A0425; A0427 ==

== ENCOUNTER 2023-09-12 09:36 | Outpatient (CLI) | payer MEDICARE, OTHER ==
--- NOTE | 2023-09-12 20:05 | XRAY Report ---
PROCEDURE: Shoulder 2+V LT INDICATIONS: SHOULDER PAIN TECHNIQUE: 3 views of the shoulder were acquired. COMPARISON: None FINDINGS: Bones: No fractures or dislocations. No suspicious bony lesions. Visualized ribs appear intact. M ild glenohumeral and AC joint space narrowing with small marginal osteophyte Soft tissues: No suspicious soft tissue calcifications. IMPRESSION: Mild arthritic changes without lytic lesion Reviewed by: Elfego Lomeli MD on 09/12/2023 7:04 PM AKST Approved by: Elfego Lomeli MD on 09/12/2023 7:04 PM AKST Station ID: [id number]
== END 2023-09-12 09:37 | disposition home or self-care (01) ==
LOC: DI 09:36
PROVIDERS: ATTEND Family Medicine
DX: M19.012 Primary osteoarthritis, left shoulder (principal)

== ENCOUNTER 2024-01-14 20:43 | Outpatient (CLI) | payer MEDICARE, OTHER | END 2024-01-14 23:59 | disposition critical access hospital (66) | LOC: EMS 20:43 | DX: R07.89 Other chest pain (principal); R06.02 Shortness of breath | CPT/HCPCS: A0425; A0427 ==